=== PATIENT | male | born 2000 | race Caucasian/White ===

== ENCOUNTER 2022-08-03 12:32 | Emergency (ER) | payer BC ==
[2022-08-03] MEDS ORDERED: SODIUM CHLORIDE 0.9% 1,000 ML IV STA (12:48)
[2022-08-03 13:25] LABS: Basophils # (A) 0.1 k/uL (0-0.2); Basophils % (A) 1 %; Eosinophils # (A) 0.2 k/uL (0-0.7); Eosinophils % (A) 2 %; HCT 45.8 % (39.0-53.0); HGB 16.1 gm/dL (13.0-17.5); Lymphocytes # (A) 2.2 k/uL (1.0-4.8); Lymphocytes % (A) 24 %; MCH 30.6 pg (25.0-35.0); MCHC 35.2 g/dL (31.0-37.0); Mean Platelet Volume 8.6; Monocytes # (A) 0.5 k/uL (0-1.0); Monocytes % (A) 6 %; Neutrophils # (A) 5.6 k/uL (1.3-7.7); Neutrophils % (A) 63 %; Platelet Count 238 k/uL (150-450); RBC 5.27 m/uL (4.30-5.90); RDW 11.6 % (11.5-15.5); WBC 8.8 k/uL (3.8-10.6)
--- NOTE | 2022-08-03 13:36 | XR ---
EXAMINATION TYPE: XR chest 2V DATE OF EXAM: 08/03/2022 1:27 PM COMPARISON: None TECHNIQUE: XR chest 2V Frontal and lateral views of the chest. CLINICAL INDICATION:Male, 21 years old with history of Chest Pain; FINDINGS: Lungs/Pleura: There is no evidence of pleural effusion, focal consolidation, or pneumothorax. Pulmonary vascularity: Unremarkable. Heart/mediastinum: Cardiomediastinal silhouette is unremarkable. Musculoskeletal: No acute osseous pathology. IMPRESSION: No acute cardiopulmonary disease/process.
[2022-08-03 13:40] LABS: ALT 18 U/L (4-49); AST 20 U/L (17-59); African American GFR (CKD) >90 (>60 ml/min/1.73 sqM); Albumin 4.9 g/dL (3.5-5.0); Alkaline Phosphatase 66 U/L (38-126); Amylase 86 U/L (30-110); Anion Gap 10 mmol/L; Blood Urea Nitrogen 14 mg/dL (9-20); Calcium 9.3 mg/dL (8.4-10.2); Carbon Dioxide 27 mmol/L (22-30); Chloride 103 mmol/L (98-107); Glucose 105 mg/dL (74-99); Lipase 47 U/L (23-300); Magnesium 1.7 mg/dL (1.6-2.3); Non-African American GFR(CKD) >90 (>60 ml/min/1.73 sqM); Sodium 140 mmol/L (137-145); Total Bilirubin 1.1 mg/dL (0.2-1.3); Total Protein 7.7 g/dL (6.3-8.2)
[2022-08-03 13:54] LABS: INR 1.1 (<1.2); Prothrombin Time 11.2 sec (9.0-12.0)
--- NOTE | 2022-08-03 14:22 | ED ---
Chest Pain HPI - General Chief Complaint: Chest Pain Stated Complaint: Chest pain Time Seen by Provider: 08/03/22 12:43 Source: patient Mode of arrival: ambulatory Limitations: no limitations - History of Present Illness Initial Comments: Patient is a 21-year-old male with no significant past medical history presenting with chief complaint of chest pain. Patient states that chest pain came on suddenly today while [place] the [place]. Pain lasted for about 15-20 minutes, sharp in nature, located on the left side of chest. Patient states that while the pain lasted was worse with movement. Patient states that the pain eventually gradually dissipated. At this time he is having no chest pain. No difficulty breathing, palpitations, weakness, numbness, tingling, nausea, vomiting, abdominal pain, fever, chills, cough, congestion, sore throat, neck pain or stiffness. - Related Data Allergies Allergy/AdvReac Type Severity Reaction Status Date / Time kiwi Allergy Unknown Verified 08/03/22 12:41 latex Allergy Unknown Verified 08/03/22 12:41 red dye Allergy Unknown Verified 08/03/22 12:41 Review of Systems ROS Statement: Those systems with pertinent positive or pertinent negative responses have been documented in the HPI. ROS Other: All systems not noted in ROS Statement are negative. EKG Findings - EKG Comments: EKG Findings:: Sinus rhythm rate of 66. MO interval 155. QRS 108. QT 393. QTC 406. No ST deviation or inverted T waves. EKG is interpreted by myself as well as my attending Past Medical History Past Medical History: No Reported History History of Any Multi-Drug Resistant Organisms: None Reported Past Surgical History: No Surgical Hx Reported Past Psychological History: No Psychological Hx Reported Smoking Status: Never smoker Past Alcohol Use History: None Reported Past Drug Use History: None Reported General Exam Limitations: no limitations General appearance: alert, in no apparent distress Head exam: Present: atraumatic, normocephalic, normal inspection Eye exam: Present: normal appearance Neck exam: Present: normal inspection, full ROM Respiratory exam: Present: normal lung sounds bilaterally. Absent: respiratory distress, wheezes, rales, rhonchi, stridor, chest wall tenderness Cardiovascular Exam: Present: regular rate, normal rhythm, normal heart sounds. Absent: systolic murmur, diastolic murmur, rubs, gallop, clicks GI/Abdominal exam: Present: soft. Absent: distended, tenderness, guarding, rebound, rigid Neurological exam: Present: alert, oriented X3, CN II-XII intact Psychiatric exam: Present: normal affect, normal mood Skin exam: Present: warm, dry, intact, normal color. Absent: rash Course Vital Signs 08/03/22 08/03/22 12:38 14:33 Temperature 98 F 97.6 F Pulse Rate 81 68 Respiratory 16 18 Rate Blood Pressure 148/82 107/65 O2 Sat by Pulse 100 100 Oximetry Chest Pain [facility] Patient is a 21-year-old male presenting with chief complaint of chest pain. Pain started suddenly this afternoon, lasted for a short while and has gradually dissipated. At time of presentation patient admits to no pain at this time. On physical examination heart and lungs are clear to auscultation, no chest wall tenderness or abdominal tenderness. CBC shows no leukocytosis or anemia. Coags are to be a normal. Troponin is less than 0.012. EKG shows no ischemic changes. Electrolytes are WNL. Chest x-ray shows no acute process. Patient is educated on these findings. Chest pain is atypical, no pain at this time, and patient has no significant past medical history. He'll be discharged home. Take Motrin and Tylenol as needed. Follow-up with PCP. Report back to ER with any new or worsening symptoms. Discussed return parameters and answered all questions. Patient conveyed verbal understanding and agreed to the plan. I discussed this case in detail with my attending Dr. Glaser Disposition Clinical Impression: Atypical chest pain Disposition: HOME SELF-CARE Condition: Good Instructions (If sedation given, give patient instructions): Chest Pain (ED), Costochondritis (ED) Additional Instructions: Follow-up with PCP. Report back to ER with any new or worsening symptoms. Take Motrin and Tylenol as needed for pain control. Stay well-hydrated and get plenty of rest. Is patient prescribed a controlled substance at d/c from ED?: No Referrals: None,Stated [Primary Care Provider] - 1-2 days Time of Disposition: 14:22
[2022-08-03 14:36] VITALS: BP 107/65; PULSE 68; RESP 18; TEMP 97.6
== END 2022-08-03 14:36 | disposition home or self-care (01) ==
LOC: EC 12:32
DX: R07.89 Other chest pain (principal); Z91.018 Allergy to other foods; Z91.040 Latex allergy status; Z91.02 Food additives allergy status
CPT/HCPCS: 36415; 71046; 80053; 82150; 83690; 83735; 84484; 85025; 85610; 85730; 93005; 96360; 99285